=== PATIENT | female | born 1995 | race Two or more races ===

== ENCOUNTER → 2024-12-25 | Outpatient (CLI) | payer BC, SELFPAY ==
--- NOTE | 2024-12-25 09:09 | XR_ITS ---
Examination: Bilateral hips, AP pelvis, 5 views Technique: AP, lateral views both hips, AP pelvis, 5 views Exam date and time: December 25, 2024 0922 hours INDICATIONS: Bilateral hip pain beginning 6 months ago. FINDINGS: No hip fracture or dislocation No avascular necrosis No significant hip arthritic change IMPRESSION: No hip fractures or significant hip arthritic change
--- NOTE | 2024-12-25 09:09 | XR_ITS ---
Examination: Lumbar spine, 5 views Technique: Lumbar spine AP, lateral, coned lateral lower lumbar spine, bilateral obliques 5 views Exam date and time: December 25, 2024 0922 hours INDICATIONS: Lower back pain 6 months. FINDINGS: Satisfactory alignment lumbar vertebral bodies No lumbar fracture Mild disc narrowing L5-S1 No spondylolisthesis IMPRESSION: Mild disc narrowing L5-S1, progressed compared to 2015 study
== END | disposition home or self-care (01) ==
LOC: COPL 09:36 → CDIM 01-02 12:36
PROVIDERS: PCP Nurse Practitioner Family; Referring Provider Nurse Practitioner Family; Visit Provider Nurse Practitioner Family
DX: M25.552 Pain in left hip (principal); M25.551 Pain in right hip; M48.07 Spinal stenosis, lumbosacral region
CPT/HCPCS: 72110; 73523

== ENCOUNTER → 2025-05-15 | Outpatient (CLI) | payer BC, SELFPAY ==
[2025-05-15 09:25] LABS: Collection Type, Urine Clean Catch
[2025-05-15 10:13] LABS: Basophils # (Auto) 0.0 Thou/mm3 (0.0-0.2); Basophils % (Auto) 1 % (0-2.5); Eosinophils # (Auto) 0.1 Thou/mm3 (0.0-0.5); Eosinophils % (Auto) 2 % (0-10); Hematocrit 40.4 % (36.0-46.0); Hemoglobin 13.4 g/dL (12.0-16.0); Immature Granulocytes Auto 0.02 Thou/mm3 (0.00-0.00); Lymphocytes # (Auto) 2.5 Thou/mm3 (1.0-4.8); Lymphocytes % (Auto) 39 % (10-50); Mean Corpuscular HGB Conc 33.2 g/dl (31.0-37.0); Mean Corpuscular Hemoglobin 29.1 pg (25.0-35.0); Mean Corpuscular Volume 88 fL (80-100); Monocytes # (Auto) 0.5 Thou/mm3 (0.0-0.8); Monocytes % (Auto) 8 % (0-12); Neutrophils # (Auto) 3.3 Thou/mm3 (1.8-7.7); Neutrophils % (Auto) 51 % (37-80); Nucleated Red Blood Cell # 0.00 Thou/mm3 (0.00-0.00); Nucleated Red Blood Cell % 0 /100 WBC (0); Platelet Count 398 Thou/mm3 (140-440); RDW Standard Deviation 41.1 fL (36.4-46.3); Red Blood Count 4.60 Miln/mm3 (4.00-5.20); White Blood Count 6.4 Thou/mm3 (3.6-11.0)
[2025-05-15 10:16] LABS: Bilirubin,Urine Negative (Negative); Blood,Urine 1+ (Negative); Clarity,Urine Clear (Clear/Hazy); Color,Urine Lt-Yellow (Lt Yel-Yel); Culture Indicated,Urine Not Indicated; Glucose, Urine Negative (Negative); Ketones,Urine Negative (Negative); Leukocyte Esterase,Urine Negative (Negative); Nitrite,Urine Negative (Negative); PH,Urine 6.0 (5.0-7.0); Protein,Urine Negative (Neg - Trace); RBC,Urine 2 /hpf (0-3); Specific Gravity,Urine 1.022 (1.001-1.035); Squamous Epithelial Cell,Urine 4 /hpf (0-5); Urobilinogen,Urine Negative mg/dL (0.0-1.0); WBC,Urine 1 /hpf (0-5)
[2025-05-15 10:23] LABS: Glucose Estimated Average 97 mg/dL (80-131); Hemoglobin A1C 5.0 % Hgb (4.8-6.0)
[2025-05-15 10:39] LABS: Alanine Aminotransferase 24 U/L (10-49); Albumin, Serum 4.9 gm/dL (3.5-5.0); Albumin/Globulin Ratio 1.8 (1.2-2.2); Alkaline Phosphatase 80 U/L (46-116); Anion Gap 10 (7-16); Aspartate Amino Transferase 23 U/L (0-34); BUN/Creatinine Ratio 13 Ratio (12-20); Bilirubin,Total 0.6 mg/dL (0.3-1.2); Blood Urea Nitrogen 9 mg/dL (9-23); C-Reactive Protein < 0.5 mg/dL (0.0-0.9); Calcium 9.9 mg/dL (8.3-10.6); Calcium (Corrected) 9.9 mg/dL (8.5-10.1); Carbon Dioxide 26.4 mMol/L (20.0-31.0); Cardiac Risk Estimate 3.4 RATIO (3.7-5.6); Chloride 105 mMol/L (98-107); Cholesterol 207 mg/dL (132-200); Creatinine (Component) 0.7 mg/dL (0.6-1.3); Globulin 2.8 gm/dL (2.3-3.5); Glucose 100 mg/dL (74-106); HDL Cholesterol 61 mg/dL (40-60); LDL Cholesterol,Calculated 117 mg/dL (0-130); Osmolality,Calculated 279 (275-295); Potassium 4.2 mMol/L (3.4-5.1); Sodium 141 mMol/L (136-145); Total Protein 7.7 gm/dL (5.7-8.2); Triglycerides 144 mg/dL (30-150); Vitamin D 25 Hydroxy Total 25.2 ng/mL (7.3-40.2); eGFR > 60 See Note
[2025-05-20 07:11] LABS: ANA Screen, IFA NEGATIVE (NEGATIVE)
== END | disposition home or self-care (01) ==
PROVIDERS: PCP Family Medicine; Referring Provider Nurse Practitioner Family; Visit Provider Nurse Practitioner Family
DX: M25.50 Pain in unspecified joint (principal); M79.10 Myalgia, unspecified site; R53.83 Other fatigue
CPT/HCPCS: 36415; 80053; 80061; 81001; 82306; 83036; 85025; 86038; 86140